=== PATIENT | male | born 1980 | race Caucasian/White ===

== ENCOUNTER 2017-10-19 12:06 | Emergency (ER) | payer BC ==
[~2017-10-19] VITALS: Ht 182.9 cm; Wt 117.9 kg
[~2017-10-19 12:06] MED LIST: Adipex-P37.5 MG PO; Flomax0.4 MG PO; Norco 5-325 Ta1 EACH PO; SERT100 PO; SERT25 PO; Zofran Odt4 MG SL
[2017-10-19] MEDS ORDERED: VARE1 PO (12:10)
[2017-10-19] MEDS ORDERED: Omeprazole20 M1 PO (12:11)
[2017-10-19] MEDS ORDERED: KETO10 PO (12:30)
[2017-10-19] MEDS ORDERED: Prednisone20 MG PO (12:30)
[2017-10-19] MEDS ORDERED: Norco 5-325 Ta1 EACH PO (12:30)
== END 2017-10-19 12:41 | disposition home or self-care (01) ==
LOC: ER 12:06
DX: M53.3 Sacrococcygeal disorders, not elsewhere classified (principal); Z88.8 Allergy status to other drugs, medicaments and biological substances; Z79.899 Other long term (current) drug therapy; Z79.52 Long term (current) use of systemic steroids; F41.9 Anxiety disorder, unspecified
CPT/HCPCS: 96372; 99284; J1885; J3010

== ENCOUNTER 2025-01-23 23:20 | Emergency (ER) | payer OTHER ==
[~2025-01-23] VITALS: Ht 182.9 cm; Wt 99.8 kg
[~2025-01-23 23:20] MED LIST changes: +KETO10 PO; +Omeprazole20 M1 PO; +Prednisone20 MG PO; +VARE1 PO
[2025-01-23 23:42] VITALS: BP 118/93
[2025-01-23] MEDS ORDERED: Ketorolac Tromethamine 15mg Vial IV ONE (23:45)
[2025-01-23 23:51] LABS: BASOPHILS ABSOLUTE AUTO 0.03 K/mm3 (0.00-0.23); BASOPHILS PERCENT AUTO 0 % (0-2); EOSINOPHILS ABSOLUTE AUTO 0.02 K/mm3 (0.00-0.68); EOSINOPHILS PERCENT AUTO 0 % (0-6); Hematocrit 47.2 % (37.0-53.0); Hemoglobin 16.6 g/dL (13.5-17.5); IMMATURE GRAN ABSOLUTE AUTO 0.07 K/mm3 (0.00-0.10); IMMATURE GRAN PERCENT AUTO 1 % (0-1); LYMPHOCYTES ABSOLUTE AUTO 2.84 K/mm3 (0.84-5.20); LYMPHOCYTES PERCENT AUTO 19 % (21-46); MONOCYTES ABSOLUTE AUTO 1.04 K/mm3 (0.16-1.47); MONOCYTES PERCENT AUTO 7 % (4-13); Mean Corpuscular HGB Conc 35.2 g/dL (31.5-36.5); Mean Corpuscular Volume 84 fL (80-100); NEUTROPHILS ABSOLUTE AUTO 10.95 K/mm3 (1.96-9.15); NEUTROPHILS PERCENT AUTO 73 % (41-73); NRBC ABSOLUTE 0.00 K/mm3 (0.00-0.02); NRBC Auto 0.0 /100 WBC (0.0-0.2); Platelet Count 336 K/mm3 (150-400); RDW Coefficient Variation 12.4 % (11.7-14.2); RDW Standard Deviation 37.2 fL (35.1-46.3)
[2025-01-24 00:12] LABS: Alanine Aminotransfer (ALT/SGP 42.0 U/L (12-78); Albumin, Blood 4.1 g/dL (3.4-5.0); Albumin/Globulin Ratio 1.0 (0.8-1.8); Anion Gap 12.0 mmol/L (3-11); Aspartate Aminotrans (AST/SGOT 31.0 U/L (12-37); Bilirubin, Total 0.6 mg/dL (0.1-1.0); Blood Urea Nitrogen 14.0 mg/dL (8-24); CO2, Blood 24.0 mmol/L (21-32); Calcium, Blood 9.0 mg/dL (8.5-10.1); Chloride, Blood 104.0 mmol/L (98-108); Creatinine, Blood 1.32 mg/dL (0.60-1.20); Globulin, Blood 4.1 g/dL (2.2-4.0); Glucose, Blood 145.0 mg/dL (70-99); Magnesium, Blood 1.9 mg/dL (1.6-2.4); Potassium, Blood 4.0 mmol/L (3.5-5.5); Sodium, Blood 136.0 mmol/L (136-145); Total Protein, Blood 8.2 g/dL (6.4-8.2)
== END 2025-01-24 02:31 | disposition home or self-care (01) ==
LOC: ER 23:20
PROVIDERS: Student in an Organized Health Care Education/Training Program
DX: R07.9 Chest pain, unspecified (principal); R55 Syncope and collapse; N17.9 Acute kidney failure, unspecified; E86.0 Dehydration; F17.220 Nicotine dependence, chewing tobacco, uncomplicated; Z88.8 Allergy status to other drugs, medicaments and biological substances; Z79.899 Other long term (current) drug therapy
CPT/HCPCS: 71045; 80053; 83735; 84484; 85025; 93005; 93010; 96374; 99285-25; J1885

== ENCOUNTER 2025-01-26 23:58 | Emergency (ER) | payer OTHER ==
[~2025-01-26] VITALS: Ht 182.9 cm; Wt 99.8 kg
[2025-01-27 02:10] LABS: BASOPHILS ABSOLUTE AUTO 0.06 K/mm3 (0.00-0.23); BASOPHILS PERCENT AUTO 1 % (0-2); EOSINOPHILS ABSOLUTE AUTO 0.20 K/mm3 (0.00-0.68); EOSINOPHILS PERCENT AUTO 2 % (0-6); Hematocrit 41.4 % (37.0-53.0); Hemoglobin 14.8 g/dL (13.5-17.5); IMMATURE GRAN ABSOLUTE AUTO 0.04 K/mm3 (0.00-0.10); IMMATURE GRAN PERCENT AUTO 0 % (0-1); LYMPHOCYTES ABSOLUTE AUTO 3.15 K/mm3 (0.84-5.20); LYMPHOCYTES PERCENT AUTO 28 % (21-46); MONOCYTES ABSOLUTE AUTO 0.86 K/mm3 (0.16-1.47); MONOCYTES PERCENT AUTO 8 % (4-13); Mean Corpuscular HGB Conc 35.7 g/dL (31.5-36.5); Mean Corpuscular Volume 85 fL (80-100); NEUTROPHILS ABSOLUTE AUTO 6.89 K/mm3 (1.96-9.15); NEUTROPHILS PERCENT AUTO 62 % (41-73); NRBC ABSOLUTE 0.00 K/mm3 (0.00-0.02); NRBC Auto 0.0 /100 WBC (0.0-0.2); Platelet Count 301 K/mm3 (150-400); RDW Coefficient Variation 12.4 % (11.7-14.2); RDW Standard Deviation 38.0 fL (35.1-46.3)
[2025-01-27 02:29] LABS: Alanine Aminotransfer (ALT/SGP 54.0 U/L (12-78); Albumin, Blood 3.5 g/dL (3.4-5.0); Albumin/Globulin Ratio 0.9 (0.8-1.8); Anion Gap 10.0 mmol/L (3-11); Aspartate Aminotrans (AST/SGOT 45.0 U/L (12-37); Bilirubin, Total 0.5 mg/dL (0.1-1.0); Blood Urea Nitrogen 14.0 mg/dL (8-24); CO2, Blood 23.0 mmol/L (21-32); Calcium, Blood 7.9 mg/dL (8.5-10.1); Chloride, Blood 107.0 mmol/L (98-108); Creatinine, Blood 1.23 mg/dL (0.60-1.20); Globulin, Blood 3.8 g/dL (2.2-4.0); Glucose, Blood 129.0 mg/dL (70-99); Potassium, Blood 4.0 mmol/L (3.5-5.5); Sodium, Blood 136.0 mmol/L (136-145); Total Protein, Blood 7.3 g/dL (6.4-8.2)
[2025-01-27] MEDS ORDERED: FentaNYL Citrate 50 MCG/ML 2 ML Injection IV ONE (02:40)
[2025-01-27] MEDS ORDERED: Morphine Sulfate 4 MG/1 ML Injection IV ONE (03:15)
[2025-01-27 03:26] LABS: Source, Urine Clean Catch
[2025-01-27 03:32] LABS: Bilirubin, Urine Neg (Neg); Glucose Qualitative, Urine Neg (Neg); Ketones, Urine Neg (Neg); Leukocyte Esterase, Urine Neg (Neg); Protein, Urine 1+ (Neg); Specific Gravity, Urine 1.020 (1.003-1.022); Urobilinogen, Urine NORM (Normal)
[2025-01-27 03:45] LABS: Color, Urine Yellow (P-Yellow)
[2025-01-27 03:47] LABS: White Blood Cells, Urine 0-2 /hpf (0-5)
[2025-01-27] MEDS ORDERED: HYDROmorphone HCl/Pf 1MG SYR IV ONE (04:50)
[2025-01-27] MEDS ORDERED: CYCL10 PO (05:32)
[2025-01-27] MEDS ORDERED: LIDOCAINE1 EAC1 TOP (05:32)
[2025-01-27 05:41] VITALS: BP 143/90
== END 2025-01-27 05:42 | disposition home or self-care (01) ==
LOC: ER 23:58
PROVIDERS: Student in an Organized Health Care Education/Training Program
DX: R10.32 Left lower quadrant pain (principal); R31.9 Hematuria, unspecified; Z79.899 Other long term (current) drug therapy; Z79.52 Long term (current) use of systemic steroids; Z88.8 Allergy status to other drugs, medicaments and biological substances
CPT/HCPCS: 74177; 80053; 81001; 83690; 85025; 96374-59; 96375; 99284-25; J1171; J2270; J3010; Q9967